=== PATIENT | male | born 1980 ===

== ENCOUNTER 2017-06-13 11:34 | Emergency (ER) | payer MEDICARE, MEDICAID ==
[2017-06-13 11:43] VITALS: BP 116/69; PULSE 67; RESP 18; TEMP 98; O2SAT 98
--- NOTE | 2017-06-13 12:38 | ED PDOC ---
Lower Extremity Pain/Injury Time Seen by Provider: 06/13/17 12:20 Chief Complaint (Nursing): Lower Extremity Problem/Injury Chief Complaint (Provider): Lower Extremity Problem/Injury History Per: Patient History/Exam Limitations: no limitations Onset/Duration Of Symptoms: Days (x1) Additional Complaint(s): Adam Rodriguez is a 36 year old male that presents to the ED for a wound check of his left foot that he injured yesterday after jumping off of an approximately 4 foot tall wall and landing improperly. Patient reports that he is unable to bear weight on his foot, and that he feels the most pain when he is trying to walk. He denies head injury, and reports that he did not take any medication for his pain. Past Medical History Reviewed: Historical Data, Nursing Documentation, Vital Signs Vital Signs: Last Vital Signs Temp 98 F 06/13/17 11:40 Pulse 67 06/13/17 11:40 Resp 18 06/13/17 11:40 BP 116/69 06/13/17 11:40 Pulse Ox 98 06/13/17 11:40 - Medical History PMH: Bipolar Disorder - Family History Family History: States: Unknown Family Hx - Living Arrangements Living Arrangements: With Family - Home Medications Home Medications: Ambulatory Orders Medication Instructions Recorded Ibuprofen [Motrin] 600 mg PO Q8 PRN #21 tab 06/13/17 - Allergies Allergies/Adverse Reactions: Allergies Allergy/AdvReac Type Severity Reaction Status Date / Time No Known Allergies Allergy Verified 06/13/17 11:40 Review of Systems Musculoskeletal: Positive for: Foot Pain (left foot pain) Physical Exam - Reviewed Nursing Documentation Reviewed: Yes Vital Signs Reviewed: Yes - Physical Exam Appears: Positive for: Non-toxic, No Acute Distress Head Exam: Positive for: ATRAUMATIC, NORMOCEPHALIC Skin: Negative for: Normal Color (mild ecchymosis below right malleolus of left foot ) Pulses-Dorsalis Pedis (L): 2+ Pulses-Dorsalis Pedis (R): 2+ Pulses-Post. Tibialis (L): 2+ Pulses-Post. Tibialis (R): 2+ Extremity: Positive for: Tenderness (tenderness mid left foot). Negative for: Normal ROM (limited ROM left foot due to pain) Neurologic/Psych: Positive for: Alert, Oriented. Negative for: Motor/Sensory Deficits - ECG O2 Sat by Pulse Oximetry: 98 (RA) Pulse Ox Interpretation: Normal - Progress ED Course And Treament: xry of foot: neg for fx xry of ankle: neg for fx xry of heel: neg for fx motrin 600mg x 1 dose Medical Decision Making Medical Decision Making: Impression: Left Foot Injury Plan: * X-Ray Left Foot * X-Ray Left Ankle * X-Ray Left Heel * Ibuprofen 600 mg PO * Reevaluation Scribe Attestation: Documented by Michaelle Giordano, acting as a scribe for Courtney Carrasco PA-C. Provider Scribe Attestation: All medical record entries made by the Scribe were at my direction and personally dictated by me. I have reviewed the chart and agree that the record accurately reflects my personal performance of the history, physical exam, medical decision making, and the department course for this patient. I have also personally directed, reviewed, and agree with the discharge instructions and disposition. Disposition - Clinical Impression Clinical Impression: Foot sprain - Patient ED Disposition Is Patient to be Admitted: No - Disposition Referrals: Podiatry Clinic [Outside] Disposition: Routine/Home Disposition Time: 13:18 Condition: FAIR Prescriptions: Ibuprofen [Motrin] 600 mg PO Q8 PRN #21 tab PRN Reason: Pain, Moderate (4-7) Instructions: Foot Sprain (ED) Forms: [email or web address] Connect (French), [facility] ED School/Work Excuse
--- NOTE | 2017-06-13 13:12 | RAD ---
PROCEDURE: Left Foot Radiographs. HISTORY: Unspecified injury. COMPARISON: None. FINDINGS: BONES: No acute fractures. Foreshortening of the 4th and lesser extent 5th metatarsals. JOINTS: Normal. SOFT TISSUES: Normal. OTHER FINDINGS: None. IMPRESSION: No acute findings related to/accounting for the clinical presentation. No preliminary report provided by emergency department personnel.
--- NOTE | 2017-06-13 13:16 | RAD ---
PROCEDURE: Left Ankle Radiographs. HISTORY: ankle injury COMPARISON: None FINDINGS: BONES: Normal. No fracture. JOINTS: Normal. No osteoarthritis. Ankle mortise maintained. Talar dome intact SOFT TISSUES: Normal. OTHER FINDINGS: None. IMPRESSION: No acute findings related to/accounting for the clinical presentation. No preliminary report provided by emergency department personnel.
--- NOTE | 2017-06-13 15:35 | RAD ---
PROCEDURE: Radiographs of the left calcaneus/hindfoot. HISTORY: heel injury COMPARISON: None available. TECHNIQUE: Frontal and lateral radiographs of the calcaneus. FINDINGS: No acute displaced fracture or joint dislocation. No calcaneal spur. IMPRESSION: Unremarkable radiographs of the left calcaneus /hindfoot.
== END 2017-06-13 14:05 | disposition home or self-care (01) ==
LOC: H.ER 11:34
DX: S99.922A Unspecified injury of left foot, initial encounter (principal); X50.9XXA Other and unspecified overexertion or strenuous movements or postures, initial encounter; Y92.89 Other specified places as the place of occurrence of the external cause; F31.9 Bipolar disorder, unspecified

== ENCOUNTER 2018-10-30 16:53 | Emergency (ER) | payer MEDICARE, OTHER ==
[2018-10-30 17:11] VITALS: BP 118/69; PULSE 68; RESP 18; TEMP 97.8
[2018-10-30 17:18] VITALS: O2SAT 98
[2018-10-30] MEDS ORDERED: Fluorescein 1 mg Ophthalmic Strip OS ONE (18:20)
[2018-10-30] MEDS ORDERED: Tetracaine 0.5% Ophth 2 ML BOTTLE OS ONE (18:21)
[2018-10-30] MEDS ORDERED: Tetracaine 0.5% Ophth 2 ML BOTTLE ONE (18:29)
[2018-10-30] MEDS ORDERED: Fluorescein 1 mg Ophthalmic Strip ONE (18:29)
--- NOTE | 2018-10-30 19:49 | ED PDOC ---
HPI: Eye Injury/Pain Time Seen by Provider: 10/30/18 18:09 Chief Complaint (Nursing): Eye Problem Chief Complaint (Provider): Eye Problem History Per: Patient History/Exam Limitations: no limitations Onset/Duration Of Symptoms: Days (x1) Current Symptoms Are (Timing): Still Present Associated Symptoms: FB Sensation. denies: Decreased Vision, Swelling, Discharge From Eye Additional Complaint(s): 38 year old male with no significant past medical history presents to the ED with sensation of foreign body in left eye for one day. Patient states while at work he felt like dust flew into eye which he rubbed eye a few times. Since then it has felt irritated, but he denies change in vision, photophobia, discharge, eyelid swelling or any other medical complaints. PMD: Dr. Aquino Past Medical History Reviewed: Historical Data, Nursing Documentation, Vital Signs Vital Signs: Last Vital Signs Temp 97.8 F 10/30/18 17:16 Pulse 68 10/30/18 17:16 Resp 18 10/30/18 17:16 BP 118/69 10/30/18 17:16 Pulse Ox 98 10/30/18 17:16 - Medical History PMH: Bipolar Disorder - Family History Family History: States: Unknown Family Hx - Immunization History Hx Influenza Vaccination: Yes - Home Medications Home Medications: Ambulatory Orders Medication Instructions Recorded Ibuprofen [Motrin] 600 mg PO Q8 PRN #21 tab 06/13/17 - Allergies Allergies/Adverse Reactions: Allergies Allergy/AdvReac Type Severity Reaction Status Date / Time No Known Allergies Allergy Verified 10/30/18 17:16 Review of Systems ROS Statement: Except As Marked, All Systems Reviewed And Found Negative Eyes: Positive for: Other (foreign body sensation ) Physical Exam - Reviewed Nursing Documentation Reviewed: Yes Vital Signs Reviewed: Yes - Physical Exam Appears: Positive for: No Acute Distress Head Exam: Positive for: ATRAUMATIC, NORMOCEPHALIC Skin: Positive for: Normal Color, Warm, Dry Eye Exam: Positive for: Other (initial impression of eye vison 20/20 bilaterally, no discharge to either eye, no periorbital edema, eye with the fluorescein stain shows no uptake of stain, no indications of cornea ulceration, no foreign body, no foreign body on inversion of tarsal plate. ) Neck: Positive for: Normal Cardiovascular/Chest: Positive for: Regular Rate, Rhythm Respiratory: Positive for: Normal Breath Sounds. Negative for: Respiratory Distress Gastrointestinal/Abdominal: Positive for: Normal Exam, Soft. Negative for: Tenderness Extremity: Positive for: Normal ROM (upper and lower) Neurologic/Psych: Positive for: Alert, Oriented (x3) - ECG O2 Sat by Pulse Oximetry: 98 (RA) Pulse Ox Interpretation: Normal Medical Decision Making Medical Decision Making: Time: 1911 Foreign body sensation to the eye without abnormalities seen on eye exam. Patient to follow up with machine turner. Return parameters discussed with patient. Scribe Attestation: Documented by Greta Figueroa, acting as a scribe for Lilliana Ramey MD Provider Scribe Attestation: All medical record entries made by the Scribe were at my direction and personall y dictated by me. I have reviewed the chart and agree that the record accurately reflects my personal performance of the history, physical exam, medical decision making, and the department course for this patient. I have also personally directed, reviewed, and agree with the discharge instructions and disposition. Disposition - Clinical Impression Clinical Impression: Foreign body in eye - Patient ED Disposition Is Patient to be Admitted: No - Disposition Referrals: Reilly Lewis MD [Staff Provider] - Disposition: Routine/Home Disposition Time: 19:12 Condition: IMPROVED Additional Instructions: Follow up with machine turner in 2 to 4 days. Return to the emergency department if symptoms worsen including swelling of the eye, pus, drainage, pain to the eye with light, or other new symptoms. Instructions: Foreign Body in Eye (DC) Forms: [employer] (Liberian), [employer] (Armenian) Print Language: TURKISH
== END 2018-10-30 19:13 | disposition home or self-care (01) ==
LOC: H.ER 16:53
DX: T15.02XA Foreign body in cornea, left eye, initial encounter (principal); Y99.0 Civilian activity done for income or pay; F31.9 Bipolar disorder, unspecified